=== PATIENT | male | born 1980 | race Caucasian/White ===

== ENCOUNTER 2024-10-29 13:52 | Outpatient (AMB) | payer OTHER, SELFPAY ==
[2024-10-29 14:07] VITALS: BP 135/85; PULSE 84; RESP 16; TEMP 36.2; O2SAT 99; BMI 25.5
--- NOTE | 2024-10-29 14:07 | ACNOTE_ITS ---
Vital Signs 10/29/24 14:07 Height 1.75 m Height Method Stated Weight 78.188 kg Weight Measurement Method Standing Scale BMI 25.5 BP 135/85 H Blood Pressure Source Automatic Cuff Blood Pressure Location Left Upper Arm Position Sitting Respiration 16 Pulse 84 Pulse Source Monitor Temp 97.2 F Temp Source Oral Pulse Oximetry (%) 99 Oxygen Delivery Method Room Air Allergies/Meds Allergies & Medications Allergies No Known Allergies Allergy (Verified 10/29/24 14:08) Medication Reconciliation blood pressure monitor (Blood Pressure Kit) #1 ea 04/16/24 [Rx Confirmed 10/29/24] tirzepatide (weight loss) 2.5 mg/0.5 mL subcutaneous pen injector (Zepbound) 2.5 mg (0.5 mL) subcut QWEEK #2 mL 04/16/24 [Rx Confirmed 10/29/24] tirzepatide (weight loss) 5 mg/0.5 mL subcutaneous pen injector (Zepbound) 5 mg (0.5 mL) subcut QWEEK #2 mL 05/05/24 [Rx Confirmed 10/29/24] tirzepatide (weight loss) 7.5 mg/0.5 mL subcutaneous pen injector (Zepbound) 7.5 mg (0.5 mL) subcut QWEEK #2 mL 10/29/24 [Rx] MA Intake Visit Data Collection New Patient or Established: Established Patient (seen at [facility] within 3 years) Seen by Clinical Staff ONLY (RN/MA): No Pain Present Currently: No Pain scale:: 0 Pain Scale Used: Oropeza-Luna/Numerical Banquet Supervisor Required: No PCP or OBGYN visit in last 3 months: Yes Date of Last PCP or OBGYN visit: 10/01/24 Hx Now: No Do You Feel Safe at Home: Yes Authorities Contacted: N/A Smoking Status Smoking Status: Never smoker Immunization / Flu Flu Vaccine in the Last 12 Months: Yes Flu Vaccine Exclusion Criteria: No Exclusion Criteria Past Medical History Past Medical History CARDIAC: Positive Hypertension RESPIRATORY: Positive Sleep Apnea GASTROINTESTINAL: Positive Obesity Family History FAMILY HISTORY: Positive Family Cardiac Disorders Social History SMOKING STATUS: Smoking status: Never smoker ALCOHOL: Alcohol Intake: Current Patient Portal Questionaires PHQ-9 PHQ-2 Over the last 2 weeks, how often have you been bothered by any of the following problems? 1. Little interest or pleasure in doing things: not at all 2. Feeling down, depressed, or hopeless: not at all Total score: 0 Depression screen completed yes Social History Tobacco History Smoking Status: Never smoker Alcohol History Alcohol Intake: Current Domestic Abuse History Do You Feel Safe at Home: Yes Review of Systems Report any current symptoms Only answer those that you have currently: Past Medical History Past Medical History Have you ever been diagnosed with any of the following: Cardiology Problems Hypertension: Yes Respiratory Problems Sleep Apnea: Yes Stomache/Intestinal Problems Obesity: Yes History of Present Illness HPI Narrative 04/16: Patient is a 43-year-old male with hypertension on chlorthalidone & losartan, obstructive sleep apnea on CPAP at night who presents to clinic with complaint of recent weight gain. Patient works as a [employer] and is physically active each day. He endorses trying a low-carb diet, and has cut out candy/soda/sweet snacks as well as all alcohol however continues to gain weight. BMI in clinic is 30.4. BP was elevated 148/90, however states he was previously at the dentist which may be contributing to elevated blood pressure. He does not check his blood pressure at home. He denies any headache, chest pain, lightheaded/dizzy feeling. Remainder of ROS was negative. Of note, patient did have labs done recently which were significant for elevated total cholesterol/LDL. 06/25: Patient returns to clinic for follow up and A1c results. A1c 5.0%. Patient has noted ~15lb weight loss since beginning zepbound. He endorses having mild nausea/decreased appetite, but also had an episode of lightheaded/dizziness. Patient's checked his BP, which was in the low 100s. Discussed with patient to reduce home chlorthalidone, as he is likely becoming dehydrated, due to poor appetite/p.o. intake while on GLP-1. Can continue losartan at half dose, and encouraged patient to continue monitoring his BP and note for any signs/symptoms of hypoglycemia. 10/29/2024: Patient returns to clinic for follow up. He has no acute complaints. ROS negative for dizziness/lightheadedness, fatigue. Patient has lost 8kg since last visit, BMI now 25.5. Patient endorses following a healthier diet, is encorporating 150 mins of exercise/week, however notices he still has cravings prior to his next injection. Patient would like to continue zepbound for maintenance. Additionally, patient states his BP has been well controlled without losartan (was 135/85 in clinic today). Advised to continue monitoring BP at home. Review of Systems Review of Systems Systems Reviewed: All systems reviewed, normal except as documented Objective/Exam Narrative Physical exam: Gen: AAOx3, pleasant to speak with HEENT: NCAT, PERRLA, EOMI, MMM, no LAD CVS: normal S1, S2. Bradycardic, RR. No MRG. Distal pulses 2+ Resp: CTA B/L. No rhonchi, rales, crackles or wheezing Abd: soft, non-tender, non-distended. BS+ in all 4 quadrants MSK: Good ROM in BUE & BLE. No edema or rash. Skin warm. Neuro: CN II-XII grossly intact. Strength 5/5 in BUE & BLE. Psych: appropriate mood and affect. Assessment & Plan Diagnosis / Problem List (1) Obesity (BMI 30.0-34.9): Status: Acute Assessment & Plan: Patient with ~33lb weight loss since starting zepbound in April 2024 BMI today 25.5 Plan: Patient advised to continue lifestyle/dietary modifications, and continue 150 mins moderate exercise/week Will continue with zepbound 7.5mg for maintenance and follow up with patient in 3 months Monitor for signs/symptoms of hypoglycemia (2) Hypertension: Status: Acute Qualifiers: Hypertension type: unspecified Qualified Code(s): I10 - Essential (primary) hypertension Assessment & Plan: BP 135/85 in clinic Patient is not taking losartan at this time due to feeling fatigued Plan: Patient advised to monitor BP at home, and if readings become elevated (>140), to resume his losartan at half dose Advised to stay hydrated while on GLP-1, as patient previously endorsed poor oral intake which could be contributing to fatigue (3) Obstructive sleep apnea on CPAP: Status: Acute Assessment & Plan: Patient states he has not been using CPAP since weight loss. Denies any fatigue Plan: Advised to monitor O2 sat at home using smart watch. Additionally advised to re-try CPAP if patient feels tired/fatigued or notices hypoxic reads. Plan Continue with zepbound 7.5mg for maintenance. Follow up in 3 months Monitor BP at home Continue diet/lifestyle modifications/physical activity Office Procedures OB Clinic LOC & Office Proc's Nursing/Assessment Patient Status: Established Patient OB Clinic Nursing Assessment: BP Monitoring, Medication Reconciliation, Update PMH in EMR and Vital Signs OB Clinic Coordination of Care: Complex Care and Chronic Disease 1-5, Consent,records obtained, informed consent, Education Simp Pt/Fam and Staff clarify orders Established Patient Charge Established Patient Point Assignment: 100 Established Patient Point Charge: EP Level 3 (80-115)
== END 2024-10-29 14:43 | disposition home or self-care (01) ==
LOC: HODAHC 13:52
PROVIDERS: PCP Student in an Organized Health Care Education/Training Program; Referring Provider Student in an Organized Health Care Education/Training Program; Supervising Provider Internal Medicine; Visit Provider Student in an Organized Health Care Education/Training Program
DX: E66.9 Obesity, unspecified (principal); Z68.25 Body mass index [BMI] 25.0-25.9, adult; I10 Essential (primary) hypertension; G47.33 Obstructive sleep apnea (adult) (pediatric); Z99.89 Dependence on other enabling machines and devices
CPT/HCPCS: 99213; G0463

== ENCOUNTER 2025-03-12 13:35 | Outpatient (AMB) | payer OTHER, SELFPAY ==
[2025-03-12 14:08] VITALS: BP 145/88; PULSE 65; RESP 18; TEMP 37; O2SAT 97; BMI 26.5
--- NOTE | 2025-03-12 14:08 | PD.RESCLINIC ---
Vital Signs 03/12/25 14:08 Height 1.75 m Height Method Stated Weight 81.363 kg Weight Measurement Method Standing Scale BMI 26.5 BP 145/88 H Blood Pressure Source Automatic Cuff Blood Pressure Location Right Upper Arm Position Sitting Respiration 18 Pulse 65 Pulse Source Monitor Temp 98.6 F Temp Source Temporal Artery Scan Pulse Oximetry (%) 97 Oxygen Delivery Method Room Air Allergies/Meds Allergies & Medications Allergies No Known Allergies Allergy (Verified 03/12/25 15:55) Medication Reconciliation blood pressure monitor (Blood Pressure Kit) #1 ea 04/16/24 [Rx Confirmed 03/12/25] tirzepatide (weight loss) 2.5 mg/0.5 mL subcutaneous pen injector (Zepbound) 2.5 mg (0.5 mL) subcut QWEEK #2 mL 04/16/24 [Rx Confirmed 03/12/25] tirzepatide (weight loss) 5 mg/0.5 mL subcutaneous pen injector (Zepbound) 5 mg (0.5 mL) subcut QWEEK #2 mL 05/05/24 [Rx Confirmed 03/12/25] diph,pertuss(acel),tet vac(PF) 2 Lf-(2.5-5-3-5mcg)-5 Lf/0.5 mL IM syringe (Adacel (Tdap Adolesn/Adult)(PF)) 0.5 ml IM QDAY #2.5 mL 03/12/25 [Rx Confirmed 03/12/25] losartan 25 mg tablet 25 mg PO QDAY #30 tabs 03/12/25 [Rx Confirmed 03/12/25] tirzepatide (weight loss) 7.5 mg/0.5 mL subcutaneous pen injector (Zepbound) 7.5 mg (0.5 mL) subcut QWEEK #2 mL 03/12/25 [Rx Confirmed 03/12/25] MA Intake Visit Data Collection New Patient or Established: Established Patient (seen at [facility] within 3 years) Seen by Clinical Staff ONLY (RN/MA): No Pain Present Currently: No Pain scale:: 0 Pain Scale Used: Oropeza-Luna/Numerical Feeder Worker Power Unit Operator Required: No PCP or OBGYN visit in last 3 months: No Hx Now: No Do You Feel Safe at Home: Yes Authorities Contacted: N/A Smoking Status Smoking Status: Never smoker Immunization / Flu Flu Vaccine in the Last 12 Months: No Flu Vaccine Exclusion Criteria: No Exclusion Criteria Past Medical History Past Medical History CARDIAC: Positive Hypertension RESPIRATORY: Positive Sleep Apnea GASTROINTESTINAL: Positive Obesity Family History FAMILY HISTORY: Positive Family Cardiac Disorders Social History SMOKING STATUS: Smoking status: Never smoker ALCOHOL: Alcohol Intake: Current Patient Portal Questionaires PHQ-9 PHQ-2 Over the last 2 weeks, how often have you been bothered by any of the following problems? 1. Little interest or pleasure in doing things: not at all Social History Tobacco History Smoking Status: Never smoker Alcohol History Alcohol Intake: Current Domestic Abuse History Do You Feel Safe at Home: Yes Review of Systems Report any current symptoms Only answer those that you have currently: Past Medical History Past Medical History Have you ever been diagnosed with any of the following: Cardiology Problems Hypertension: Yes Respiratory Problems Sleep Apnea: Yes Stomache/Intestinal Problems Obesity: Yes History of Present Illness HPI Narrative 04/16: Patient is a 43-year-old male with hypertension on chlorthalidone & losartan, obstructive sleep apnea on CPAP at night who presents to clinic with complaint of recent weight gain. Patient works as a [employer] and is physically active each day. He endorses trying a low-carb diet, and has cut out candy/soda/sweet snacks as well as all alcohol however continues to gain weight. BMI in clinic is 30.4. BP was elevated 148/90, however states he was previously at the dentist which may be contributing to elevated blood pressure. He does not check his blood pressure at home. He denies any headache, chest pain, lightheaded/dizzy feeling. Remainder of ROS was negative. Of note, patient did have labs done recently which were significant for elevated total cholesterol/LDL. 06/25: Patient returns to clinic for follow up and A1c results. A1c 5.0%. Patient has noted ~15lb weight loss since beginning zepbound. He endorses having mild nausea/decreased appetite, but also had an episode of lightheaded/dizziness. Patient's checked his BP, which was in the low 100s. Discussed with patient to reduce home chlorthalidone, as he is likely becoming dehydrated, due to poor appetite/p.o. intake while on GLP-1. Can continue losartan at half dose, and encouraged patient to continue monitoring his BP and note for any signs/symptoms of hypoglycemia. 10/29/2024: Patient returns to clinic for follow up. He has no acute complaints. ROS negative for dizziness/lightheadedness, fatigue. Patient has lost 8kg since last visit, BMI now 25.5. Patient endorses following a healthier diet, is encorporating 150 mins of exercise/week, however notices he still has cravings prior to his next injection. Patient would like to continue zepbound for maintenance. Additionally, patient states his BP has been well controlled without losartan (was 135/85 in clinic today). Advised to continue monitoring BP at home. 03/12/2025 Here for follow-up, denies active or new complaints. Reports about 20 lbs weight loss with ZEPBOUND. BP elevated again today despite lifestyle changes, 145/88. Reports of symptoms of JOSE FRANCISCO after weight loss. Orders: Screening colonoscopy, annual labs including A1c, CBC, CMP, thyroid, lipid panel and microalbumin. Tdap Meds: Started LOSARTAN 25 mg daily. Refill ZEPBOUND. Follow-up: 1 month with BP log and lab results. Review of Systems Review of Systems Narrative Review of Systems: Denies fever, chills, headaches, chest pain, sob, cough, GI or urinary symptoms. Objective/Exam Narrative Physical exam: GENERAL Well-developed adult male. HEENT NCAT.?ISAAC. Oral mucosa is moist. Patent Nares NECK Supple, nontender, no JVD. CHEST RRR, no m/g/r CTAB, no w/r/r, symmetrical expansion. ABDOMEN Soft, flat, nontender. No guarding/rebound tenderness/masses. Bowel sounds presents EXTREMITIES No edema/cyanosis.? SKIN Warm and dry, no jaundice/rashes. NEUROMUSCULAR No lumbar or midline, no CVA, no paraspinal muscle spasm or tenderness. Moves all 4 extremities well, with full ROM and good CSM. MADRIGAL x4, CN II-XII grossly intact. No focal neurologic deficits. PSYCHIATRY Normal mood and affect, cooperative, no SI or HI or hallucinations. Assessment & Plan Diagnosis / Problem List (1) Hyperlipemia, mixed: Status: Acute (2) Annual physical exam: Status: Acute (3) Obstructive sleep apnea on CPAP: Status: Acute (4) Hypertension: Status: Acute Qualifiers: Hypertension type: unspecified Qualified Code(s): I10 - Essential (primary) hypertension (5) Obesity (BMI 30.0-34.9): Status: Acute (6) Screening for colon cancer: Status: Acute Plan Here for follow-up, denies active or new complaints. Reports about 20 lbs weight loss with ZEPBOUND. BP elevated again today despite lifestyle changes, 145/88. Lipids were elevated on previous visit from last year. Commended continue lifestyle modification, exercise, avoid high caloric and fatty foods. Orders: Screening colonoscopy, annual labs including A1c, CBC, CMP, thyroid, lipid panel and microalbumin. Tdap Meds: Started LOSARTAN 25 mg daily. Refill ZEPBOUND. Follow-up: 1 month with BP log and lab results. Orders: Orders Ambulatory Hemoglobin A1C 03/12/25 Z00.00 - Encounter for general adult medical examination without abnormal findings Thyroid Stimulating Hormone 03/12/25 Z00.00 - Encounter for general adult medical examination without abnormal findings Free T4 (Free Thyroxine) 03/12/25 Z00.00 - Encounter for general adult medical examination without abnormal findings Comprehensive Metabolic Panel 03/12/25 Z00.00 - Encounter for general adult medical examination without abnormal findings Lipid Panel 03/12/25 E78.2 - Mixed hyperlipidemia Microalbumin, Ur Rnd w Creat 03/12/25 CBC 03/12/25 Z00.00 - Encounter for general adult medical examination without abnormal findings Referrals Gastroenterology E78.2 - Mixed hyperlipidemia Office Procedures [facility] Level of Care Nursing/Assessment Patient Status: Established Patient Nursing Assessment/Reassessment: Medication Reconciliation, Update PMH in EMR and Vital Signs Coordination of Care: Complex Care and Chronic Disease 1-5, Consent,records obtained, informed consent, Education Simp Pt/Fam, Lab and Imaging orders and Staff clarify orders Established Patient Charge Established Patient Point Assignment: 100 Established Patient Point Charge: Level 3 (80-115)
== END 2025-03-12 15:00 | disposition home or self-care (01) ==
LOC: HODAHC 13:35
PROVIDERS: Supervising Provider Internal Medicine
DX: Z00.00 Encounter for general adult medical examination without abnormal findings (principal); E66.9 Obesity, unspecified; Z68.26 Body mass index [BMI] 26.0-26.9, adult; I10 Essential (primary) hypertension; E78.2 Mixed hyperlipidemia; Z76.0 Encounter for issue of repeat prescription
CPT/HCPCS: 99213; G0463

== ENCOUNTER → 2025-04-16 | Outpatient (CLI) | payer OTHER, SELFPAY ==
[2025-04-16 09:41] LABS: Basophils # (Auto) 0.0 Thou/mm3 (0.0-0.2); Basophils % (Auto) 1 % (0-2.5); Eosinophils # (Auto) 0.1 Thou/mm3 (0.0-0.5); Eosinophils % (Auto) 1 % (0-10); Hematocrit 43.5 % (41.0-53.0); Hemoglobin 14.6 g/dL (13.5-16.0); Immature Granulocytes Auto 0.01 Thou/mm3 (0.00-0.00); Lymphocytes # (Auto) 1.8 Thou/mm3 (1.0-4.8); Lymphocytes % (Auto) 30 % (10-50); Mean Corpuscular HGB Conc 33.6 g/dl (31.0-37.0); Mean Corpuscular Hemoglobin 29.9 pg (25.0-35.0); Mean Corpuscular Volume 89 fL (80-100); Monocytes # (Auto) 0.4 Thou/mm3 (0.0-0.8); Monocytes % (Auto) 7 % (0-12); Neutrophils # (Auto) 3.8 Thou/mm3 (1.8-7.7); Neutrophils % (Auto) 62 % (37-80); Nucleated Red Blood Cell # 0.00 Thou/mm3 (0.00-0.00); Nucleated Red Blood Cell % 0 /100 WBC (0); Platelet Count 238 Thou/mm3 (140-440); RDW Standard Deviation 40.8 fL (35.1-43.9); Red Blood Count 4.88 Miln/mm3 (4.50-5.90); White Blood Count 6.1 Thou/mm3 (3.8-10.6)
[2025-04-16 09:49] LABS: Glucose Estimated Average 100 mg/dL (80-131); Hemoglobin A1C 5.1 % Hgb (4.8-6.0)
[2025-04-16 09:59] LABS: Alanine Aminotransferase 10 U/L (10-49); Albumin, Serum 4.7 gm/dL (3.5-5.0); Albumin/Globulin Ratio 2.5 (1.2-2.2); Alkaline Phosphatase 57 U/L (46-116); Anion Gap 10 (7-16); Aspartate Amino Transferase 21 U/L (0-34); BUN/Creatinine Ratio 12 Ratio (12-20); Bilirubin,Total 0.5 mg/dL (0.3-1.2); Blood Urea Nitrogen 12 mg/dL (9-23); Calcium 9.9 mg/dL (8.3-10.6); Calcium (Corrected) 9.9 mg/dL (8.5-10.1); Carbon Dioxide 26.8 mMol/L (20.0-31.0); Cardiac Risk Estimate 2.3 RATIO (4.0-6.7); Chloride 107 mMol/L (98-107); Cholesterol 146 mg/dL (132-200); Creatinine (Component) 1.0 mg/dL (0.6-1.3); Free T4 (Free Thyroxine) 1.27 ng/dL (0.89-1.76); Globulin 1.9 gm/dL (2.3-3.5); Glucose 92 mg/dL (74-106); HDL Cholesterol 64 mg/dL (40-60); LDL Cholesterol,Calculated 69 mg/dL (0-130); Osmolality,Calculated 286 (275-295); Potassium 4.0 mMol/L (3.4-5.1); Sodium 144 mMol/L (136-145); Thyroid Stimulating Hormone 0.81 uIU/mL (0.55-4.78); Total Protein 6.6 gm/dL (5.7-8.2); Triglycerides 64 mg/dL (30-150); eGFR > 60 See Note
[2025-04-16 10:07] LABS: Creatinine MALB Rnd Ur 189 mg/dL (30-125); Microalbumin Creat Ratio 3 mg/gCrea (<30); Microalbumin, Random Urine 5 mg/L (0-300)
== END | disposition home or self-care (01) ==
PROVIDERS: PCP Family Medicine
DX: Z00.00 Encounter for general adult medical examination without abnormal findings (principal); E78.2 Mixed hyperlipidemia
CPT/HCPCS: 36415; 80053; 80061; 82043; 82570; 83036; 84439; 84443; 85025